=== PATIENT | female | born 1950 | race Caucasian/White ===

== ENCOUNTER → 2019-10-20 | Outpatient (CLI) | payer BC | LOC: COL.RAD 12:45 | DX: N13.39 Other hydronephrosis (principal); Z85.41 Personal history of malignant neoplasm of cervix uteri ==

== ENCOUNTER 2020-02-18 23:25 | Inpatient (IN) | payer MEDICARE, BC ==
[~2020-02-18] VITALS: Ht 154.9 cm; Wt 77.5 kg
[2020-02-19 01:29] LABS: BASO % 0.1 % (0.0-2.0); GRAN # 11.8 (1.4-6.5); GRAN % 88.2 % (42.2-75.2); HEMATOCRIT 38.8 % (37.0-47.0); HEMOGLOBIN 12.7 g/dl (12.5-16.0); LYMPH # 0.9 (1.2-3.4); LYMPH % 6.6 % (20.0-51.0); MEAN CELL VOLUME 92 fl (80.0-100.0); MEAN CORPUSCULAR HEMOGLOBIN 30 pg (27.0-31.0); MEAN CORPUSCULAR HGB CONC 33 g/dl (33.0-37.0); MEAN PLATELET VOLUME 9.6 fl (7.4-10.4); MONO # 0.6 (0.1-0.6); MONO % 4.4 % (1.7-9.3); PLATELET COUNT 206 K/mm3 (130-400); RED BLOOD COUNT 4.23 M/mm3 (4.10-5.30); REDCELL DISTRIBUTION WIDTH-CV 13.4 % (11.5-14.5)
[2020-02-19 01:48] LABS: ALANINE AMINOTRANSFERASE 89 U/L (4-34); ALBUMIN 3.5 gm/dL (3.5-5.0); ALKALINE PHOSPHATASE 158 U/L (50-136); ANION GAP 6 mmol/L (7-16); AST,SGOT 54 U/L (15-37); BILIRUBIN,TOTAL 0.5 mg/dL (0.0-1.0); BLOOD UREA NITROGEN 14 mg/dL (7-17); CALCIUM 8.6 mg/dL (8.4-10.2); CARBON DIOXIDE 29 mmol/L (22-30); CHLORIDE 106 mmol/L (98-107); CREATININE, serum 0.67 (0.52-1.25); GLUCOSE 120 mg/dL (74-106); POTASSIUM 3.7 mmol/L (3.4-5.0); SODIUM 141 mmol/L (137-145); TOTAL PROTEIN 6.6 gm/dL (6.4-8.2)
[2020-02-19 02:00] LABS: TROPONIN-I < 0.012 ng/mL (0.000-0.035)
[2020-02-19] MEDS ORDERED: RT ADVAIR 228 DISKUS IH (03:53)
--- NOTE | 2020-02-19 03:55 | NUR ---
Received patient from ER via wheelchair. Patient is alert and oriented. She is on O2 at 2lpm via NC. She denies pain. Assesment and med rec completed. With IV on left hand infusing Levothyroxine. She is independent in room. Call light within reach. Lungs are diminished. Call light within reach.
[2020-02-19] MEDS ORDERED: PROAIR HFA0.09 MG/AC IH (03:56)
[2020-02-19] MEDS ORDERED: ALBUTEROL0.83 MG/ML IH (03:59)
[2020-02-19] MEDS ORDERED: ZITHROMAX 250M250 MG PO (04:03)
[2020-02-19 04:46] VITALS: BP 150/70; PULSE 75; TEMP 98.3
[2020-02-19 05:07] LABS: ARTERIAL BLD GAS O2 SATURATION 98.2 % (92-100); ARTERIAL BLD GAS TCO2 CT 27.7; ARTERIAL BLOOD GAS BASE EXCESS 2.9 (-2-2); ARTERIAL BLOOD GAS HCO3 26.6 meq/L (22-26); ARTERIAL BLOOD GAS PCO2 37.6 mmHg (35-45); ARTERIAL BLOOD GAS PO2 120.4 mmHg (80-100); ARTERIAL BLOOD GAS pH 7.47 (7.35-7.45)
--- NOTE | 2020-02-19 08:32 | NUR ---
PATIENT ASSESSMENT COMPLETED. SHE REPORTS DOES HAVE A SLIGHT HEADACHE. DENIES NEED FOR TYLENOL AT THIS TIME. COMPLAINS OF SHORTNESS OF BREATH ONLY WITH ACTIVITY. NO OTHER NEEDS AT THIS TIME.
[2020-02-19 09:07] VITALS: BP 129/56; PULSE 84; TEMP 98
[2020-02-19 11:25] LABS: HEMATOCRIT 40.8 % (37.0-47.0); HEMOGLOBIN 13.3 g/dl (12.5-16.0); MEAN CELL VOLUME 93 fl (80.0-100.0); MEAN CORPUSCULAR HEMOGLOBIN 30 pg (27.0-31.0); MEAN CORPUSCULAR HGB CONC 33 g/dl (33.0-37.0); MEAN PLATELET VOLUME 10.1 fl (7.4-10.4); PLATELET COUNT 238 K/mm3 (130-400); RED BLOOD COUNT 4.39 M/mm3 (4.10-5.30); REDCELL DISTRIBUTION WIDTH-CV 13.4 % (11.5-14.5)
[2020-02-19 11:34] LABS: ALBUMIN 3.8 gm/dL (3.5-5.0); BILIRUBIN,TOTAL 0.5 mg/dL (0.0-1.0); CALCIUM 8.8 mg/dL (8.4-10.2); CREATININE, serum 0.89 (0.52-1.25); POTASSIUM 3.3 mmol/L (3.4-5.0); TOTAL PROTEIN 7.3 gm/dL (6.4-8.2)
[2020-02-19 12:05] LABS: TSH w REFLEX 0.72 uIU/mL (0.465-4.680)
[2020-02-19 12:20] LABS: BAND 1 % (0-10); EOSINOPHIL 1 % (0-4); LYMPHOCYTE 3 % (20.0-51.0); NEUTROPHILS 95 % (42.0-75.2); PLATELET ESTIMATE NORMAL (NORMAL)
[2020-02-19 12:21] LABS: ERYTHROCYTE SEDIMENTATION RATE 31 mm/hr (0-30)
--- NOTE | 2020-02-19 12:33 | NUR ---
DIANNA (Herlinda) met with patient to discuss intake evaluation. Patient lives in [place] with her Red (P# [phone]). Patient reported that she does not need assistance with daily living activities, and that she has a nebulizer at home. Patient's PCP is Dr. Crenshaw, and she uses [facility] for pharmacy needs. Patient does not have a DPOA at this time but chose to appoint her Red. DIANNA will assist with signing forms. Patient plans to return home with her upon discharge. Patient denies questions or concerns about discharge at this time. Social work will continue to follow.
[2020-02-19 12:57] VITALS: BP 128/53; PULSE 77; TEMP 98.1
[2020-02-19 16:38] VITALS: BP 133/59; PULSE 74; TEMP 98.2
[2020-02-19 20:29] VITALS: BP 153/69; PULSE 78; TEMP 98.2
--- NOTE | 2020-02-19 23:31 | NUR ---
Patient A/O x4. Patient denies any pain or discomfort. Denies SOB or dyspnea. SPO2 96% on RA. Denies N/V. Left hand IV site has no s/s of complications. Flushed IV with NS without difficulty. Call light within reach. Patient denies any needs at this time.
[2020-02-20 00:35] VITALS: BP 144/66; PULSE 72; TEMP 97.7
[2020-02-20 04:19] VITALS: BP 138/84; PULSE 67; TEMP 97.7
--- NOTE | 2020-02-20 06:29 | NUR ---
Patient rested well throughout the night. No c/o pain or discomfort. No SOB or dyspnea. VS stable. No acute distress noted.Will give report to day shift nurse
[2020-02-20 07:44] VITALS: BP 147/64; PULSE 67; TEMP 98.1
[2020-02-20 08:15] LABS: BASO % 0.1 % (0.0-2.0); GRAN # 12.3 (1.4-6.5); GRAN % 88.7 % (42.2-75.2); HEMOGLOBIN 12.6 g/dl (12.5-16.0); LYMPH # 0.8 (1.2-3.4); MEAN CELL VOLUME 92 fl (80.0-100.0); MEAN CORPUSCULAR HEMOGLOBIN 31 pg (27.0-31.0); MEAN CORPUSCULAR HGB CONC 33 g/dl (33.0-37.0); MEAN PLATELET VOLUME 10.4 fl (7.4-10.4); MONO # 0.7 (0.1-0.6); MONO % 4.7 % (1.7-9.3); PLATELET COUNT 242 K/mm3 (130-400); RED BLOOD COUNT 4.12 M/mm3 (4.10-5.30); REDCELL DISTRIBUTION WIDTH-CV 13.5 % (11.5-14.5)
[2020-02-20 08:22] LABS: CALCIUM 8.9 mg/dL (8.4-10.2); CREATININE, serum 0.63 (0.52-1.25); POTASSIUM 3.4 mmol/L (3.4-5.0)
--- NOTE | 2020-02-20 10:00 | NUR ---
UPDATED FAMILY ON PT STATUS. OLIVA DAUGHTER.
--- NOTE | 2020-02-20 10:02 | NUR ---
PT RESTING IN BED. ATTEMPTED TO GIVE IV DECADRON AND IV SITE WILL NOT FLUSH. ATTEMPTED TO START X2. CONTACTED ANOTHER NURSE TO ATTEMPT. ASSESSMENTS COMPLETE. PT DENIES PAIN, N/V. AFEBRILE AND MAINTIANING SATS IN MID 90'S ON 2 L O2 PNC. FAMILY UPDATED THIS AM.
[2020-02-20 11:17] VITALS: BP 136/61; PULSE 75; TEMP 97.8
--- NOTE | 2020-02-20 14:13 | NUR ---
Petroleum Laboratory Technician collaborted with PA to have PT/OT ordered for the patient.
--- NOTE | 2020-02-20 14:38 | NUR ---
1ST DOSE OF REMDISIVIR COMPLETE, PT TOLERATED WELL. PT SITTING IN RECLINER ON 2 L O2 PNC.
--- NOTE | 2020-02-20 16:57 | NUR ---
REPORT TO ADENIKE CARDOZO
[2020-02-20 16:59] VITALS: BP 132/70; PULSE 81; TEMP 97.9
[2020-02-20 20:36] VITALS: BP 130/58; PULSE 80; TEMP 97.9
--- NOTE | 2020-02-20 21:25 | NUR ---
Patient sitting in the chair and watching TV upon enter the room. Patient denies any chest pain, SOB/dyspnea, N/V, or diarrhea. SPO2 93% on 2L via NC. Breathing even and unlabored. Patient reports feeling better today complared to yesterday. Noticed patient has non-productive dry cough. No acute respiratory distress noted. IV to left wrist has no s/s of complications. Flushed with NS without difficulty. Call light within reach. Patient denies any needs at this time.
[2020-02-21 00:37] VITALS: BP 145/74; PULSE 62; TEMP 97.8
[2020-02-21 04:05] VITALS: BP 140/62; PULSE 68; TEMP 97.6
--- NOTE | 2020-02-21 05:03 | NUR ---
Patient rested well throughout the night. No any c/o pain or discomfort. No acute distress noted. Call light within reach. Will give report to day shift nurse.
[2020-02-21 08:05] LABS: BASO % 0.1 % (0.0-2.0); GRAN # 7.9 (1.4-6.5); GRAN % 83.5 % (42.2-75.2); HEMATOCRIT 38.7 % (37.0-47.0); HEMOGLOBIN 12.8 g/dl (12.5-16.0); LYMPH # 0.9 (1.2-3.4); LYMPH % 9.2 % (20.0-51.0); MEAN CELL VOLUME 92 fl (80.0-100.0); MEAN CORPUSCULAR HEMOGLOBIN 30 pg (27.0-31.0); MEAN CORPUSCULAR HGB CONC 33 g/dl (33.0-37.0); MEAN PLATELET VOLUME 9.8 fl (7.4-10.4); MONO # 0.6 (0.1-0.6); MONO % 6.6 % (1.7-9.3); PLATELET COUNT 263 K/mm3 (130-400); RED BLOOD COUNT 4.23 M/mm3 (4.10-5.30); REDCELL DISTRIBUTION WIDTH-CV 13.4 % (11.5-14.5)
[2020-02-21 08:19] LABS: CALCIUM 8.9 mg/dL (8.4-10.2); CREATININE, serum 0.62 (0.52-1.25); POTASSIUM 4.5 mmol/L (3.4-5.0)
[2020-02-21 08:44] VITALS: BP 128/63; PULSE 71; TEMP 97.8
--- NOTE | 2020-02-21 10:57 | NUR ---
Pt assessment completed and charted, medications administered per apr. pt A&O, independent in room, on 1L NC, satting low 90s. pt sitting in recliner upon entry. Pt c/o SOB and "feeling wiped out" but denies any pain, dizziness, N/V/D, chest pain, numbness or tingling. Pt has RWR INT IV that flushes ok. LS diminished throughout, BS active, HRRR. No edema noted. No further needs expressed, breakfast tray set up.
[2020-02-21 11:10] LABS: ALBUMIN 3.6 gm/dL (3.5-5.0); TOTAL PROTEIN 6.8 gm/dL (6.4-8.2)
[2020-02-21 11:21] LABS: BILIRUBIN UNCONJUGATED 0.3 mg/dL (0.0-1.1); BILIRUBIN,DIRECT 0.1 mg/dL (0.0-0.4); BILIRUBIN,TOTAL 0.3 mg/dL (0.0-1.0)
[2020-02-21 12:00] VITALS: BP 131/59; PULSE 72; TEMP 97.9
[2020-02-21 16:02] VITALS: BP 139/60; PULSE 80; TEMP 98.1
--- NOTE | 2020-02-21 18:21 | NUR ---
Pt daughter Emma called earlier for pt update. This nurse checked w/ patient who verbalized ok to give daughter update. This nurse returned phone call, update given, all questions answered, no further needs.
[2020-02-21 19:06] VITALS: BP 144/59; PULSE 80; TEMP 97.9
--- NOTE | 2020-02-21 20:46 | NUR ---
Individual denied pain and or discomfort. VSS. No s/s distress noted.
[2020-02-22 08:00] VITALS: BP 138/62; PULSE 86; TEMP 97.9
[2020-02-22 12:00] VITALS: BP 142/58; PULSE 79; TEMP 97.8
[2020-02-22 12:42] LABS: BASO % 0.1 % (0.0-2.0); GRAN # 7.1 (1.4-6.5); GRAN % 84.9 % (42.2-75.2); HEMATOCRIT 36.5 % (37.0-47.0); HEMOGLOBIN 12.2 g/dl (12.5-16.0); LYMPH # 0.6 (1.2-3.4); LYMPH % 7.6 % (20.0-51.0); MEAN CELL VOLUME 92 fl (80.0-100.0); MEAN CORPUSCULAR HEMOGLOBIN 31 pg (27.0-31.0); MEAN CORPUSCULAR HGB CONC 33 g/dl (33.0-37.0); MEAN PLATELET VOLUME 10.2 fl (7.4-10.4); MONO # 0.6 (0.1-0.6); MONO % 6.7 % (1.7-9.3); PLATELET COUNT 263 K/mm3 (130-400); RED BLOOD COUNT 3.98 M/mm3 (4.10-5.30); REDCELL DISTRIBUTION WIDTH-CV 13.7 % (11.5-14.5)
[2020-02-22 13:14] LABS: CALCIUM 9.1 mg/dL (8.4-10.2); CREATININE, serum 0.63 (0.52-1.25); POTASSIUM 4.6 mmol/L (3.4-5.0)
--- NOTE | 2020-02-22 15:25 | NUR ---
ALBITEROL HFA CRYPTOLOGIST X 2, AND [employer] cath lab radiological technologist this am, no scanner.
--- NOTE | 2020-02-22 16:00 | NUR ---
pt daughter updated on condition
[2020-02-22 16:45] VITALS: BP 133/67; PULSE 73; TEMP 97.7
--- NOTE | 2020-02-22 18:13 | NUR ---
PATIENT HAD UNEVENTFUL DAY,ON 1L OF O2 VIA NC.NO NEEDS AT THIS TIME
[2020-02-22 21:06] VITALS: BP 138/61; PULSE 73; TEMP 97.8
[2020-02-23 00:19] VITALS: BP 128/62; PULSE 66; TEMP 98.4
[2020-02-23 04:18] VITALS: BP 135/60; PULSE 70; TEMP 97.9
--- NOTE | 2020-02-23 06:46 | NUR ---
lab reported IV site looks red and swollen and pt c/o pain. entered room and IV had infiltrated with levofloxacin infusing. Asked pt how long the IV had been hurting and she said since the infusion started. pt reports poor sleep, she was tearful and saying that she "just hopes every day will get better". RH IV removed. placed warm washcloth to L arm to assess for new iv sites.
[2020-02-23 07:30] LABS: BASO % 0.1 % (0.0-2.0); GRAN % 83.6 % (42.2-75.2); HEMATOCRIT 37.7 % (37.0-47.0); HEMOGLOBIN 12.3 g/dl (12.5-16.0); LYMPH # 0.6 (1.2-3.4); LYMPH % 7.7 % (20.0-51.0); MEAN CELL VOLUME 93 fl (80.0-100.0); MEAN CORPUSCULAR HEMOGLOBIN 30 pg (27.0-31.0); MEAN CORPUSCULAR HGB CONC 33 g/dl (33.0-37.0); MEAN PLATELET VOLUME 10.1 fl (7.4-10.4); MONO # 0.6 (0.1-0.6); MONO % 7.9 % (1.7-9.3); PLATELET COUNT 237 K/mm3 (130-400); RED BLOOD COUNT 4.07 M/mm3 (4.10-5.30); REDCELL DISTRIBUTION WIDTH-CV 13.4 % (11.5-14.5)
[2020-02-23 07:48] LABS: CALCIUM 8.8 mg/dL (8.4-10.2); CREATININE, serum 0.61 (0.52-1.25); POTASSIUM 4.5 mmol/L (3.4-5.0)
--- NOTE | 2020-02-23 07:57 | NUR ---
pt very tearful in room, keeps saying "i can't do this anymore". denies taking any medication at home for anxiety. pulse ox 92% on 1L. pt had episode like this yesterday in am. Dr. Darnell notified, one time order for ativan.
[2020-02-23 08:00] VITALS: BP 154/66; PULSE 72; TEMP 97.7
--- NOTE | 2020-02-23 09:43 | NUR ---
PATIENT WAS RECEIVED CALM,MEDICATION ADMINISTERED,ASSESSMENT DONE.WAS TEARING REASSURED AND LEFT COMFORTABLE.DENIES PAIN NO NEEDS AT THIS TIME.
--- NOTE | 2020-02-23 09:50 | NUR ---
UPDATED DAUGHTER OLIVA ABOUT PATIENT'S PROGRESS.
[2020-02-23 12:00] VITALS: BP 139/62; PULSE 81; TEMP 97.7
[2020-02-23 14:11] LABS: ALBUMIN 3.2 gm/dL (3.5-5.0); BILIRUBIN UNCONJUGATED 0.3 mg/dL (0.0-1.1); BILIRUBIN,DIRECT 0.2 mg/dL (0.0-0.4); BILIRUBIN,TOTAL 0.5 mg/dL (0.0-1.0); TOTAL PROTEIN 6.5 gm/dL (6.4-8.2)
[2020-02-23 16:00] VITALS: BP 133/62; PULSE 70; TEMP 97.9
--- NOTE | 2020-02-23 17:30 | NUR ---
PATIENT HAD A CALM DAY,DINNER BROUGHT IN THE ROOM,ON O2 VIA NC.NO CONCERNS AT THIS TIME
[2020-02-23 20:30] VITALS: BP 134/62; PULSE 72; TEMP 97.8
[2020-02-24 00:35] VITALS: BP 137/65; PULSE 96; TEMP 98
[2020-02-24 03:31] VITALS: BP 118/68; PULSE 70; TEMP 97.7
[2020-02-24 08:30] VITALS: BP 127/56; PULSE 88; TEMP 98.2
[2020-02-24] MEDS ORDERED: LEVAQUIN 750MG750 M1 PO (10:29)
[2020-02-24] MEDS ORDERED: TESSALON P100 MG/CAP PO (10:38)
[2020-02-24] MEDS ORDERED: OXYGEN NASAL.CANN (11:04)
[2020-02-24 12:17] VITALS: BP 132/63; PULSE 79; TEMP 97.9
--- NOTE | 2020-02-24 13:26 | NUR ---
The patient is to discharge home today, 02/23 with senior care home health services. DIANNA contacted the patient via cell phone to discuss [employer]'s list of home health agencies and she chose [facility]. Referral faxed and patient accepted for services. The patient qualifies for oxen. DIANNA faxed order to [facility]. The patient's Red will quill picking machine operator the oxygen equipment prior to picking the patient up at discharge. DIANNA faxed discharge orders to [facility]. DIANNA collaborated the above information with the patient's nurse.
--- NOTE | 2020-02-24 13:47 | NUR ---
PATIENT DISCHARGED,EDUCATED ABOUT HOME MEDS,APPOINTMENTS,PERSONAL BELONGINGS.VERBALIZED UNDERSTANDING.AWAITS HER RIDE HOME.
--- NOTE | 2020-02-24 14:50 | NUR ---
pt taken down via wheelchair with belongings to pt admissions. attempted to set up pt home oxygen, RT came down and set up oxygen. no other needs at this time.
== END 2020-02-24 14:50 | disposition home health service (06) | DRG 177 ==
LOC: COL.ER 23:25 → MEDICAL 02-19 02:26
PROVIDERS: Emergency Medicine; Student in an Organized Health Care Education/Training Program; ADMIT Hospitalist
PROC: XW033E5 Introduction of Remdesivir Anti-infective into Peripheral Vein, Percutaneous Approach, New Technology Group 5 (ICD-10-PCS; principal; 2020-02-19)
DX: U07.1 COVID-19 (principal); J12.82 Pneumonia due to coronavirus disease 2019; J45.901 Unspecified asthma with (acute) exacerbation; R74.01 Elevation of levels of liver transaminase levels; F41.9 Anxiety disorder, unspecified; E03.9 Hypothyroidism, unspecified; Z85.41 Personal history of malignant neoplasm of cervix uteri
CPT/HCPCS: OP; 99222-AI; 99232-AI; 99233-AI; 99239; J1100; J1650; J1940; J1956; J2930; J3475; J7030; J7050; J8540

== ENCOUNTER 2020-02-29 11:20 | Emergency (ER) | payer BC ==
[~2020-02-29] VITALS: Ht 154.9 cm; Wt 79.1 kg
[~2020-02-29 11:20] MED LIST: ALBUTEROL0.83 MG/ML IH; LEVAQUIN 750MG750 M1 PO; OXYGEN NASAL.CANN; PROAIR HFA0.09 MG/AC IH; RT ADVAIR 228 DISKUS IH; TESSALON P100 MG/CAP PO; ZITHROMAX 250M250 MG PO
[2020-02-29 11:32] VITALS: TEMP 98.3
[2020-02-29 14:34] LABS: BASO % 0.1 % (0.0-2.0); EOS # 0.1 (0.0-0.7); EOS % 1.1 % (0-4.0); GRAN # 5.8 (1.4-6.5); GRAN % 74.3 % (42.2-75.2); HEMOGLOBIN 11.9 g/dl (12.5-16.0); LYMPH # 0.8 (1.2-3.4); LYMPH % 10.1 % (20.0-51.0); MEAN CELL VOLUME 92 fl (80.0-100.0); MEAN CORPUSCULAR HEMOGLOBIN 30 pg (27.0-31.0); MEAN CORPUSCULAR HGB CONC 33 g/dl (33.0-37.0); MONO # 1.1 (0.1-0.6); PLATELET COUNT 158 K/mm3 (130-400); RED BLOOD COUNT 3.92 M/mm3 (4.10-5.30); REDCELL DISTRIBUTION WIDTH-CV 13.2 % (11.5-14.5)
[2020-02-29 14:35] LABS: HEMATOCRIT 36.2 % (37.0-47.0)
[2020-02-29 14:43] LABS: ALANINE AMINOTRANSFERASE 21 U/L (4-34); ALBUMIN 2.9 gm/dL (3.5-5.0); ALKALINE PHOSPHATASE 104 U/L (50-136); ANION GAP 3 mmol/L (7-16); AST,SGOT 21 U/L (15-37); BILIRUBIN,TOTAL 0.4 mg/dL (0.0-1.0); BLOOD UREA NITROGEN 12 mg/dL (7-17); CALCIUM 8.5 mg/dL (8.4-10.2); CARBON DIOXIDE 32 mmol/L (22-30); CHLORIDE 101 mmol/L (98-107); GLUCOSE 92 mg/dL (74-106); POTASSIUM 4.2 mmol/L (3.4-5.0); SODIUM 135 mmol/L (137-145); TOTAL PROTEIN 5.8 gm/dL (6.4-8.2)
[2020-02-29 15:02] LABS: TROPONIN-I < 0.012 ng/mL (0.000-0.035)
[2020-02-29 16:19] LABS: COLLECTION METHOD CLEAN CATCH
[2020-02-29 16:27] LABS: MUCOUS Present /lpf; PH 6 (5-8); SQUAMOUS EPITHELIAL 0-2 /hpf; URINE APPEARANCE Clear; URINE BACTERIA None Seen /hpf; URINE BILIRUBIN Negative (NEGATIVE); URINE BLOOD Negative (NEGATIVE); URINE COLOR Yellow; URINE GLUCOSE Negative (NEGATIVE); URINE KETONE Negative (NEGATIVE); URINE LEUKOCYTE ESTERASE Negative (NEGATIVE); URINE NITRATE Negative (NEGATIVE); URINE PROTEIN(semi-quant) Negative (NEGATIVE); URINE RBC 0-2 /hpf; URINE UROBILINOGEN Negative (NEGATIVE)
[2020-02-29 16:51] VITALS: BP 110/76; PULSE 89
== END 2020-02-29 17:00 | disposition home or self-care (01) ==
LOC: COL.ER 11:20
PROVIDERS: Nurse Practitioner Primary Care
DX: R53.83 Other fatigue (principal); R00.0 Tachycardia, unspecified; J45.909 Unspecified asthma, uncomplicated; Z88.0 Allergy status to penicillin
CPT/HCPCS: J7030

== ENCOUNTER 2021-07-31 14:03 | Day surgery (SDC) | payer BC ==
[~2021-07-31] VITALS: Ht 154.9 cm; Wt 80.0 kg
[2021-07-31] MEDS ORDERED: SINGULAIR 110 MG/TAB PO (14:55)
[2021-07-31 15:22] VITALS: BP 138/62; PULSE 80; TEMP 97.5
[2021-07-31 17:30] VITALS: BP 123/59; PULSE 65; TEMP 98.2
--- NOTE | 2021-07-31 17:31 | NUR ---
PT TO ROOM 328 PER BED WITH REPORT FROM RUSLAN CARDOZO PACU @[id number]. PT IS A/O X3, LUNGS CTA, BOWEL SOUNDS PRESENT. PT UP TO VOID ON ARRIVAL FROM PACU. VOIDED AND RETURNED TO BED. PT DRINKING WATER AND EATING JELLO. PT MAY DISCHARGE WHEN CRITERIA MET.
[2021-07-31 17:45] VITALS: BP 132/48; PULSE 74; TEMP 98
[2021-07-31 18:00] VITALS: BP 132/48; PULSE 74; TEMP 98.2
[2021-07-31 18:15] VITALS: BP 138/50; PULSE 76; TEMP 98.2
== END 2021-07-31 19:35 | disposition home or self-care (01) ==
LOC: SDCO 14:03 → SURG 17:15 → SDCO 19:35
DX: N20.1 Calculus of ureter (principal); N13.1 Hydronephrosis with ureteral stricture, not elsewhere classified
CPT/HCPCS: OP; C1769; C2617; J0690; J1100; J2405; J2704; J3010; J7120

== ENCOUNTER → 2023-03-09 | Outpatient (CLI) | payer BC ==
[~2023-03-09] MED LIST changes: +SINGULAIR 110 MG/TAB PO
== END ==
LOC: MC.RAD 10:44
DX: N63.15 Unspecified lump in the right breast, overlapping quadrants (principal)